=== PATIENT | male | born 1965 ===

== ENCOUNTER 2020-06-30 23:04 | Emergency (ER) | payer OTHER ==
[~2020-06-30] VITALS: Ht 172.7 cm; Wt 89.4 kg
[2020-06-30] MEDS ORDERED: COZAAR25 MG (23:18)
[2020-06-30] MEDS ORDERED: JANUMET 50-5001 EACH (23:18)
[2020-06-30] MEDS ORDERED: LIPOFEN50 MG (23:18)
[2020-07-01] MEDS ORDERED: KETO10TA2 PO (02:40)
== END 2020-07-01 02:52 | disposition home or self-care (01) ==
LOC: ER 23:04
DX: S96.811A Strain of other specified muscles and tendons at ankle and foot level, right foot, initial encounter (principal); X50.0XXA Overexertion from strenuous movement or load, initial encounter; Y93.73 Activity, racquet and hand sports; Y92.39 Other specified sports and athletic area as the place of occurrence of the external cause; Y99.8 Other external cause status

== ENCOUNTER 2020-07-09 06:21 | Day surgery (SDC) | payer OTHER ==
[~2020-07-09 06:21] MED LIST: COZAAR25 MG; JANUMET 50-5001 EACH; KETO10TA2 PO; LIPOFEN50 MG
[2020-07-09] MEDS ORDERED: ASA325 M1 PO (15:41)
[2020-07-09] MEDS ORDERED: PERCOCET 5-3251 EACH PO (15:41)
[2020-07-09] MEDS ORDERED: DUI500 PO (15:41)
== END 2020-07-09 18:40 | disposition home or self-care (01) ==
LOC: CIR.AMB 06:21
PROVIDERS: ATTEND Orthopaedic Surgery
DX: S86.011D Strain of right Achilles tendon, subsequent encounter (principal); Z20.822 Contact with and (suspected) exposure to COVID-19
CPT/HCPCS: 27650; 15275; Q4101